=== PATIENT | female | born 2000 | race Caucasian/White ===

== ENCOUNTER 2020-07-09 15:14 | Emergency (ER) | payer OTHER ==
[~2020-07-09] VITALS: Ht 162.6 cm; Wt 90.9 kg
[2020-07-09] MEDS ORDERED: CEPHALEXIN500 M1 PO ×2 (16:05→19:24)
[2020-07-09 16:59] VITALS: BP 125/80; PULSE 65; TEMP 98
== END 2020-07-09 16:59 | disposition home or self-care (01) ==
LOC: COL.ER 15:14
DX: S91.342A Puncture wound with foreign body, left foot, initial encounter (principal)